=== PATIENT | female | born 1945 | race Two or more races ===

== ENCOUNTER 2018-01-14 11:56 | Inpatient (IN) | payer OTHER ==
[~2018-01-14] VITALS: Ht 157.5 cm; Wt 81.2 kg
[2018-01-20] MEDS ORDERED: EVISTA60 MG PO (14:31)
[2018-01-20] MEDS ORDERED: LEVOTHYROXINE125 MCG PO (14:31)
[2018-01-20] MEDS ORDERED: HYZAAR 100-12.1 EACH PO (14:31)
[2018-01-22] MEDS ORDERED: GABAPENTIN800 MG PO (07:18)
[2018-01-22] MEDS ORDERED: DOCUSATE SODIU100 MG PO (07:19)
[2018-01-22] MEDS ORDERED: PERCOCET 5-3251 EACH PO (07:20)
[2018-01-22] MEDS ORDERED: CLONAZEPAM1 MG PO (07:20)
[2018-01-22] MEDS ORDERED: AMOX-CLAV 875-1 EACH PO (07:20)
== END 2018-01-22 16:48 | DRG 460 ==
LOC: EDUNIT# 01-20 13:00 → PED 01-21 04:45 → O/R 01-21 04:45 → SURH 01-21 10:00 → SURG 01-21 15:54 → O/R 01-21 15:54 → PED 01-21 16:28
PROVIDERS: Orthopaedic Surgery Orthopaedic Surgery of the Spine
PROC: 0SG10AJ Fusion of 2 or more Lumbar Vertebral Joints with Interbody Fusion Device, Posterior Approach, Anterior Column, Open Approach (ICD-10-PCS; 2018-01-21)
PROC: 0ST20ZZ Resection of Lumbar Vertebral Disc, Open Approach (ICD-10-PCS; 2018-01-21)
PROC: 07DS3ZZ Extraction of Vertebral Bone Marrow, Percutaneous Approach (ICD-10-PCS; 2018-01-21)
PROC: 0SG10A0 Fusion of 2 or more Lumbar Vertebral Joints with Interbody Fusion Device, Anterior Approach, Anterior Column, Open Approach (ICD-10-PCS; principal; 2018-01-21 10:00)
DX: M43.16 Spondylolisthesis, lumbar region (principal); M48.061 Spinal stenosis, lumbar region without neurogenic claudication; M41.86 Other forms of scoliosis, lumbar region; I10 Essential (primary) hypertension

== ENCOUNTER 2018-01-14 12:19 | Outpatient (CLI) | payer OTHER | END 2018-01-14 12:30 | disposition home or self-care (01) | LOC: RAD 12:19 → LAB 12:19 | DX: D68.8 Other specified coagulation defects (principal); E03.8 Other specified hypothyroidism; R07.1 Chest pain on breathing; D64.89 Other specified anemias ==

== ENCOUNTER 2021-12-27 09:29 | Outpatient (CLI) | payer OTHER ==
[~2021-12-27 09:29] MED LIST: AMOX-CLAV 875-1 EACH PO; CLONAZEPAM1 MG PO; DOCUSATE SODIU100 MG PO; EVISTA60 MG PO; GABAPENTIN800 MG PO; HYZAAR 100-12.1 EACH PO; LEVOTHYROXINE125 MCG PO; PERCOCET 5-3251 EACH PO
== END 2021-12-27 09:45 | disposition home or self-care (01) ==
LOC: TOM 09:29
PROVIDERS: ATTEND Internal Medicine Gastroenterology
DX: K56.601 Complete intestinal obstruction, unspecified as to cause (principal)